=== PATIENT | female | born 1975 | race Hispanic/Latino ===

== ENCOUNTER → 2018-08-26 | Day surgery (SDC) | payer OTHER, MEDICARE ==
[2018-08-21 10:04] LABS: BASOPHILS # (AUTO) 0.1 (0.0-0.1); BASOPHILS % 0.5 % (0.0-1.0); EOSINOPHILS # (AUTO) 0.1 (0.0-0.4); EOSINOPHILS % 0.9 % (0.0-6.0); HEMATOCRIT 39.6 % (34.2-44.1); HEMOGLOBIN 12.4 g/dL (12.0-16.0); LYMPHOCYTES # (AUTO) 3.5 (1.0-3.2); MEAN CORPUSCULAR HEMOGLOBIN 27.1 pg (28-32); MEAN CORPUSCULAR HGB CONC 31.3 g/dL (31-35); MEAN CORPUSCULAR VOLUME 86.7 fL (81-99); MONOCYTES # (AUTO) 0.7 (0.2-0.8); MONOCYTES % 7.2 % (4.4-11.3); NEUTROPHILS # (AUTO) 5.8 (2.1-6.9); NEUTROPHILS % 56.3 % (38.7-80.0); PLATELET COUNT 323 x10e3/uL (140-360); RED BLOOD COUNT 4.57 x10e6/uL (3.6-5.1); RED CELL DISTRIBUTION WIDTH 14.4 % (11.7-14.4)
[2018-08-21 10:21] LABS: ANION GAP 12.7 mmol/L (8-16); BLOOD UREA NITROGEN 16 mg/dL (7-26); BUN/CREATININE RATIO 21 (6-25); CALCIUM 9.8 mg/dL (8.4-10.2); CARBON DIOXIDE 29 mmol/L (22-29); CHLORIDE 103 mmol/L (98-107); CREATININE, SERUM 0.75 mg/dL (0.57-1.11); EST GLOMERULAR FILTRATION RATE > 60 ML/MIN (60-); GLUCOSE 89 mg/dL (74-118); POTASSIUM 4.7 mmol/L (3.5-5.1); SODIUM 140 mmol/L (136-145)
[~2018-08-26] MED LIST: ATENOLOL25 MG PO; DEXAMETHASONE SOD PHOS INJ 4 MG/ML VIAL ONE; ENALAPRIL MALEA20 MG PO; ETODOLAC400 MG PO; FENTANYL CITRATE/PF 100MCG/2 ML INJ ONE; IBUPROFEN600 MG; LIDOCAINE HCL 2% LOCAL INJ 5 ML SDV VIAL INJ ONE; METFORMIN HCL500 MG PO; MIDAZOLAM HCL 2 MG/2 ML VIAL ONE; ONDANSETRON HCL INJ 2 MG/ML VIAL ONE; PANTOPRAZOLE SO40 MG PO; PRAVASTATIN SOD40 MG PO; PROPOFOL IV EMULSION 10 MG/ML 20 ML VIAL ONE; SEVOFLURANE INHAL SOLN 250 ML PEN BTL ONE; TYLENOL # 31 EA
--- OUTSIDE RECORDS SUMMARY | 2018-08-26 10:21 | XMS REPORT | Clinical Summary ---
Author Author [facility] Organization [facility] Address Unknown Phone Unavailable Care Team Providers Care Electric Crane Operator Name Role Phone Андрей Power MD PCP Allergies Active Allergy Reactions Severity Noted Date Comments Penicillins 02/04/2018 Current Medications Prescription Sig. Disp. Refills Start End Date Status Date enalapril (VASOTEC) 5 MG Take by mouth. Active tablet loratadine (CLARITIN) 10 Take by mouth. Active mg tablet metFORMIN (GLUCOPHAGE) Take by mouth. Active 500 mg tablet omeprazole (PriLOSEC) 20 Take by mouth. Active MG capsule simvastatin (ZOCOR) 40 MG Take by mouth. Active tablet Active Problems No known active problems Encounters Date Type Specialty Care Team Description 02/04/2018 Office Visit Otolaryngology Rhina Hernandez MD Dysfunction of both eustachian tubes (Primary Dx); Sensorineural hearing loss, bilateral after 08/25/2017 Social History Tobacco Use Types Packs/Day Years Used Date Never Smoker Smokeless Tobacco: Never Used Alcohol Use Drinks/Week oz/Week Comments No Sex Assigned at Date Recorded Not on file Last Filed Vital Signs Vital Sign Reading Time Taken Blood Pressure 155/103 02/04/2018 10:08 AM CDT Pulse 82 02/04/2018 10:08 AM CDT Temperature - - Respiratory Rate - - Oxygen Saturation - - Inhaled Oxygen - - Concentration Weight 75.3 kg (166 lb) 02/04/2018 10:08 AM CDT Height 152.4 cm (5') 02/04/2018 10:08 AM CDT Body Mass Index 32.42 02/04/2018 10:08 AM CDT Plan of Treatment Health Maintenance Due Date Last Done Comments CERVICAL CANCER SCREENING 1995 INFLUENZA VACCINE 05/27/2018 Results Not on fileafter 08/25/2017 Insurance Payer Benefit Subscriber ID Type Phone Address Plan / Group TEXANPLUS TEXANPLUS xxxxxxxxx HMO [facility] MEDICAID MEDICAID xxxxxxxxx Medicaid
--- OUTSIDE RECORDS SUMMARY | 2018-08-26 10:21 | XMS REPORT | Clinical Summary ---
Author Author [facility] Organization [facility] Address Unknown Phone Unavailable Care Team Providers Care Relief Driller Name Role Phone PCP Unavailable Allergies Active Allergy Reactions Severity Noted Date Comments Penicillins 08/04/2006 Current Medications Prescription Sig. Disp. Refills Start End Date Status Date ATENOLOL 25 MG TAB take 1 tablet (25mg) by Active oral route once daily METFORMIN 500 MG TAB take 1 tablet (500mg) by Active oral route 2 times per day with morning and evening meals SIMVASTATIN 40 MG TAB take 1 tablet (40mg) by Active oral route once daily in the evening LORATADINE 10 MG TAB take 1 tablet (10mg) by Active oral route once daily ENALAPRIL MALEATE 5 MG take 1 tablet (5mg) by Active TAB oral route once daily PRILOSEC 20 MG CAP take 1 capsule (20mg) by Active oral route once daily before a meal DOXYCYCLINE HYCLATE 100 take 1 capsule (100mg) by 14 0 02/06/20 Active MG CAPIndications: Acne oral route once daily 07 rosacea Active Problems Problem Noted Date Acne rosacea 02/05/2007 Hypercholesteremia 11/04/2006 DM II (diabetes mellitus, type II) 08/04/2006 Allergic rhinitis, cause unspecified 08/04/2006 HTN (hypertension) 08/04/2006 Encounters Date Type Specialty Care Team Description 06/05/2018 Emergency Emergency Medicine Bobby Mccall MD Swelling of lower extremity (Primary Dx) 09/08/2017 Emergency Emergency Medicine Pako Avitia MD Hypertension, unspecified - type (Primary Dx) 09/09/2017 after 06/17/2017 Immunizations Name Dates Previously Given Next Due Influenza Vaccine 08/18/2006 Family History Medical History Relation Name Comments Arthritis Maternal Aunt Heart Maternal Aunt Hypertension Maternal Aunt Psychiatry Maternal Aunt Cancer Paternal Aunt Relation Name Status Comments Maternal Aunt Mother Alive Paternal Aunt Social History Tobacco Use Types Packs/Day Years Used Date Never Smoker Alcohol Use Drinks/Week oz/Week Comments No Sex Assigned at Date Recorded Not on file Last Filed Vital Signs Vital Sign Reading Time Taken Blood Pressure 110/69 06/05/2018 3:12 AM CDT Pulse 55 06/05/2018 3:12 AM CDT Temperature 36.4 C (97.5 F) 06/05/2018 3:12 AM CDT Respiratory Rate 18 06/05/2018 3:12 AM CDT Oxygen Saturation 98% 06/05/2018 3:12 AM CDT Inhaled Oxygen - - Concentration Weight 75.4 kg (166 lb 3.2 oz) 06/04/2018 8:56 PM CDT Height - - Body Mass Index - - Plan of Treatment Health Maintenance Due Date Last Done Comments DM Foot Exam (Yearly) 1992 DM Retinal Exam (Yearly) 1992 Cervical Cancer Scrn (3 1995 Yrs) DM HGBA1C (Yearly) 10/28/2007 10/28/2006 Breast Cancer Scrn 2014 (Yearly) IMM Influenza Seasonal 07/27/2018Jul to December (>/=19 yrs) Procedures Procedure Name Priority Date/Time Associated Diagnosis Comments GLUCOSE POC Routine 06/04/2018 Results for this 8:57 PM CDT procedure are in the results section. BMP POC Routine 09/08/2017 Results for this 10:31 PM MARINE ENGINE MACHINIST procedure are in the results section. VBG POC Routine 09/08/2017 Results for this 10:26 PM MARINE ENGINE MACHINIST procedure are in the results section. TROPONIN I POC Routine 09/08/2017 Results for this 10:24 PM MARINE ENGINE MACHINIST procedure are in the results section. PHOSPHORUS STAT 09/08/2017 Results for this 10:12 PM MARINE ENGINE MACHINIST procedure are in the results section. MAGNESIUM STAT 09/08/2017 Results for this 10:12 PM MARINE ENGINE MACHINIST procedure are in the results section. 12 LEAD EKG Routine 09/08/2017 Results for this 6:25 PM MARINE ENGINE MACHINIST procedure are in the results section. GLUCOSE POC Routine 09/08/2017 Results for this 6:21 PM MARINE ENGINE MACHINIST procedure are in the results section. after 06/17/2017 Results * GLUCOSE POC (06/04/2018 8:57 PM) Only the most recent of 2 results within the time period is included. Glucose POC 84 74 - 106 mg/dL [facility] 1 Performing Organization Address [facility] Phone Number MISYS [facility] 1 * BMP POC (09/08/2017 10:31 PM) CO2 POC 26 21 - 32 mmol/L [facility] Chloride POC 102 98 - 107 mmol/L [place] [address] Potassium POC 4.4 3.50 - 5.10 mmol/L [place] [address] Sodium POC 138 136 - 145 mmol/L [place] [address] Glucose POC 116 (H) 74 - 106 mg/dL [place] [address] Urea Nitrogen POC 12 7 - 18 mg/dL [place] [address] Creatinine POC 0.7 0.6 - 1.3 mg/dL [place] [address] Calcium Ionized POC 1.21 1.15 - 1.29 mmol/L [place] [address] Hemoglobin POC 13.3 12.0 - 16.0 g/dL [place] [address] Hematocrit POC 39.0 37.0 - 47.0 % [place] [address] GFR, Estimated >60 mL/min/1.73 m2 [place] [address] GFR, Estim, Afr-Am >60 mL/min/1.73 m2 [facility] 1 Performing Organization Address [facility] Phone Number [employer] [facility] 1 * VBG POC (09/08/2017 10:26 PM) pH, Dea POC 7.43Comment: Physician 7.33 - 7.43 [facility] Notified pCO2, Dea POC 43.2 38.0 - 50.0 mm Hg [place] [address] pO2, Dea POC 33 (L) 50 - 75 mm Hg [facility] 1 Base Excess, Dea POC 4 mmol/L [place] [address] HCO3, Dea POC 28.7 (H) 22.0 - 26.0 mmol/L [place] [address] % Sat, Dea POC 65 60 - 85 % [place] [address] Lactic Acid, Dea POC 1.40 0.4 - 2.0 mmol/L [place] [address] TCO2, DEA POC 30 21 - 32 mmol/L [facility] 1 Performing Organization Address [facility] Phone Number [employer] [facility] 1 * TROPONIN I POC (09/08/2017 10:24 PM) Troponin POC 0.00 0.00 - 0.08 ng/mL [facility] 1 Performing Organization Address [facility] Phone Number [facility] 1 * PHOSPHORUS (09/08/2017 10:12 PM) Phosphorus 4.5 2.5 - 4.9 mg/dL [facility] 4 Specimen Blood Performing Organization Address [facility] Phone Number ALIS [facility] 4 * MAGNESIUM (09/08/2017 10:12 PM) Magnesium 2.4 1.8 - 2.4 mg/dL [facility] 4 Specimen Blood Performing Organization Address [facility] Phone Number [facility] 4 * 12 LEAD EKG (09/08/2017 6:25 PM) 12 LEAD EKG FOR CH[facility] Test Date:2017-09-08 Pat Name: ANGELICA MIDDLETON Department: Room: Gender: F Retail Buyer: [id number] :[id number] [phone] Requested By: Order Number: Oral saleem MD: GRACE GUERRERO Measurements Intervals [place] Rate: 67 P:56 CO: 128 QRS: 36 QRSD: 83 T:37 QT: 383 QTc:404 Interpretive Statements SINUS RHYTHM NONSPECIFIC T WAVE ABNORMALITY BORDERLINE ECG Electronically Signed On 09-08-17 20:32:19 MARINE ENGINE MACHINIST by GRACE GUERRERO Performing Organization Address [facility] Phone Number [facility] after 06/17/2017
--- OUTSIDE RECORDS SUMMARY | 2018-08-26 10:21 | XMS REPORT | Clinical Summary ---
Author Author [facility] Organization [facility] Address Unknown Phone Unavailable Care Team Providers Care Food Truck Caterer Name Role Phone PCP Unavailable Allergies Active [...] unspecified - type (Primary Dx) 09/09/2017 after 06/11/2017 Immunizations Name Dates Previously Given Next Due [...] Influenza Seasonal 07/27/2018Jul to December (>/=19 yrs) Results * GLUCOSE POC (06/04/2018 8:57 PM) Only the most recent of 2 results within the time period is included. Component Value Ref Range Glucose POC 84 74 - 106 mg/dL Specimen Performing Laboratory MISYS * BMP POC (09/08/2017 10:31 PM) Component Value Ref Range CO2 POC 26 21 - 32 mmol/L Chloride POC 102 98 - 107 mmol/L Potassium POC 4.4 3.50 - 5.10 mmol/L Sodium POC 138 136 - 145 mmol/L Glucose POC 116 (H) 74 - 106 mg/dL Urea Nitrogen POC 12 7 - 18 mg/dL Creatinine POC 0.7 0.6 - 1.3 mg/dL Calcium Ionized POC 1.21 1.15 - 1.29 mmol/L Hemoglobin POC 13.3 12.0 - 16.0 g/dL Hematocrit POC 39.0 37.0 - 47.0 % GFR, Estimated >60 mL/min/1.73 m2 GFR, Estim, Afr-Am >60 mL/min/1.73 m2 Specimen Performing Laboratory MISYS * VBG POC (09/08/2017 10:26 PM) Component Value Ref Range pH, Dea POC 7.43Comment: Physician Notified 7.33 - 7.43 pCO2, Dea POC 43.2 38.0 - 50.0 mm Hg pO2, Dea POC 33 (L) 50 - 75 mm Hg Base Excess, Dea POC 4 mmol/L HCO3, Dea POC 28.7 (H) 22.0 - 26.0 mmol/L % Sat, Dea POC 65 60 - 85 % Lactic Acid, Dea POC 1.40 0.4 - 2.0 mmol/L TCO2, DEA POC 30 21 - 32 mmol/L Specimen Performing Laboratory MISYS * TROPONIN I POC (09/08/2017 10:24 PM) Component Value Ref Range Troponin POC 0.00 0.00 - 0.08 ng/mL Specimen Performing Laboratory [facility] * PHOSPHORUS (09/08/2017 10:12 PM) Component Value Ref Range Phosphorus 4.5 2.5 - 4.9 mg/dL Specimen Performing Laboratory Blood MISYS * MAGNESIUM (09/08/2017 10:12 PM) Component Value Ref Range Magnesium 2.4 1.8 - 2.4 mg/dL Specimen Performing Laboratory Blood MISYS * 12 LEAD EKG (09/08/2017 6:25 PM) Component Value Ref Range 12 LEAD EKG FOR [facility]P [facility] Test Date:2017-09-08 Pat Name: ANGELICA MIDDLETON Department: : Gender: FT echnician: [id number] :1975 Requested By: Order Number: Reading MD: GRACE GUERRERO Measurements Intervals [place] Rate: 67 P:56 [place]: 128QRS :36 QRSD: 83 T:37 QT: 383 QTc:404 Interpretive Statements SINUS RHYTHM NONSPECIFIC T WAVE ABNORMALITY BORDERLINE ECG Electronically Signed On 09-08-17 20:32:19 SPEEDER FRAME TENDER by GRACE GUERRERO Specimen Performing Laboratory SMS after 06/11/2017
--- OUTSIDE RECORDS SUMMARY | 2018-08-26 10:21 | XMS REPORT | Continuity of Care Document ---
Author Author [facility] Interface Address Unknown Phone Unavailable Problems Problem Status Onset Date Classification Date Reported Comments Source 246.9 DISORDER OF THYROID Active 11/30/2013 [facility] Acne rosacea Active 02/05/2007 Problem 06/18/2018 [facility] Hypercholesteremia Active 11/04/2006 Problem 06/18/2018 [facility] DM II Active 08/04/2006 Problem 06/18/2018 [facility] Allergic rhinitis, cause unspecified Active 08/04/2006 Problem 06/18/2018 [facility] HTN Active 08/04/2006 Problem 06/18/2018 [facility] Medications Medication Details Route Status Patient Instructions Ordering Provider Order Date Source Doxycycline Hyclate 100 Mg Capsule take 1 capsule (100mg) by oral route once daily Oral Active 02/05/2007 [facility] Atenolol 25 Mg Tablet take 1 tablet (25mg) by oral route once daily Oral Active [facility] Metformin 500 Mg Tablet take 1 tablet (500mg) by oral route 2 times per day with morning and evening meals Oral Active [facility] Simvastatin 40 Mg Tablet take 1 tablet (40mg) by oral route once daily in the evening Oral Active [facility] Loratadine 10 Mg Tablet take 1 tablet (10mg) by oral route once daily Oral Active [facility] Enalapril Maleate 5 Mg Tablet take 1 tablet (5mg) by oral route once daily Oral Active [facility] Prilosec 20 Mg Capsule,Delayed Release take 1 capsule (20mg) by oral route once daily before a meal Oral Active [facility] Allergies, Adverse Reactions, Alerts Substance Category Reaction Severity Reaction type Status Date Reported Comments Source Penicillins Propensity to adverse reactions to drug Active 08/04/2006 [facility] Immunizations Immunization Date Given Site Status Last Updated Comments Source Influenza Vaccine 08/18/2006 completed [facility] Results Order Name Results Value Reference Range Date Interpretation Comments Source GLUCOSE POC Glucose POC 84 mg/dL 74 - 106 06/05/2018 [facility] GLUCOSE POC Glucose POC 84 mg/dL 74 - 106 06/04/2018 [facility] MAGNESIUM Magnesium 2.4 mg/dL 1.8 - 2.4 09/09/2017 [facility] PHOSPHORUS Phosphorus 4.5 mg/dL 2.5 - 4.9 09/09/2017 [facility] TROPONIN I POC Troponin POC 0.00 ng/mL 0 - 0.08 09/09/2017 [facility] POC CO2 POC 26 mmol/L 21 - 32 09/09/2017 [facility] POC Chloride POC 102 mmol/L 98 - 107 09/09/2017 [facility] POC Potassium POC 4.4 mmol/L 3.5 - 5.1 09/09/2017 [facility] POC Sodium POC 138 mmol/L 136 - 145 09/09/2017 [facility] POC Glucose POC 116 mg/dL 74 - 106 09/09/2017 [facility] POC Urea Nitrogen POC 12 mg/dL 7 - 18 09/09/2017 [facility] POC Creatinine POC 0.7 mg/dL 0.6 - 1.3 09/09/2017 [facility] POC Calcium Ionized POC 1.21 mmol/L 1.15 - 1.29 09/09/2017 [facility] POC Hemoglobin POC 13.3 g/dL 12 - 16 09/09/2017 [facility] POC Hematocrit POC 39.0 % 37 - 47 09/09/2017 [facility] POC GFR, Estimated >60 mL/min/1.73 m2 09/09/2017 [facility] POC GFR, Estim, Afr-Am >60 mL/min/1.73 m2 09/09/2017 [facility] POC Lab Interpretation Abnormal 09/09/2017 [facility] POC pH, Dea POC 7.43 7.33 - 7.43 09/09/[address] [facility] POC pCO2, Dea POC 43.2 38.0 - 50.0 [facility] pO[facility], Dea POC 33 50 - 75 09/09/2017 [facility] POC Base Excess, Dea POC 4 mmol/L 09/09/[facility] HCO3, Dea POC 28.7 mmol/L 22 - 26 [facility]/09/[facility] % Sat, Dea POC 65 % 60 - 85 09/09/[facility] Lactic Acid, Dea POC 1.40 mmol/L 0.4 - 2 09/09/2017 [facility] TCO2, DEA POC 30 mmol/L 21 - 32 09/09/2017 [facility] Lab Interpretation Abnormal 09/09/2017 [facility] 12 LEAD EKG 12 LEAD EKG FOR [facility]P [facility] Test Date:2017-09-08 Pat Name: ANGELICA MIDDLETON Department: : Gender: FTechnician: [id number] :1975 Requested By: Order Number:Reading MD: GRACE GUERRERO Measurements IntervalsAxis Rate: 67 P:56 [place]: 128QRS:36 QRSD: 83 T:37 QT: 383 QTc:404 Interpretive Statements SINUS RHYTHM NONSPECIFIC T WAVE ABNORMALITY BORDERLINE ECG Electronically Signed On 09-08-17 20:32:19 GRAIN OPERATOR by GRACE GUERRERO 09/09/2017 [facility] POC CO2 POC 26 mmol/L 21 - 32 09/08/2017 [facility] POC Chloride POC 102 mmol/L 98 - 107 09/08/2017 [facility] POC Potassium POC 4.4 mmol/L 3.5 - 5.1 09/08/2017 [facility] POC Sodium POC 138 mmol/L 136 - 145 09/08/2017 [facility] POC Glucose POC 116 mg/dL 74 - 106 09/08/2017 [facility] POC Urea Nitrogen POC 12 mg/dL 7 - 18 09/08/2017 [facility] POC Creatinine POC 0.7 mg/dL 0.6 - 1.3 09/08/2017 [facility] POC Calcium Ionized POC 1.21 mmol/L 1.15 - 1.29 09/08/2017 [facility] POC Hemoglobin POC 13.3 g/dL 12 - 16 09/08/2017 [facility] POC Hematocrit POC 39.0 % 37 - 47 09/08/2017 [facility] POC GFR, Estimated >60 mL/min/1.73 m2 09/08/2017 [facility] POC GFR, Estim, Afr-Am >60 mL/min/1.73 m2 09/08/2017 [facility] POC Lab Interpretation Abnormal 09/08/2017 [facility] POC pH, Dea POC 7.43 7.33 - 7.43 09/08/[address] [facility] POC pCO2, Dea POC 43.2 mm Hg 38.0 - 50.0 09/08/2017 [facility] POC pO2, Dea POC 33 mm Hg 50 - 75 09/08/2017 [facility] POC Base Excess, Dea POC 4 mmol/L 09/08/2017 [facility]BG POC HCO3, Dea POC 28.7 mmol/L 22 - 26 09/08/2017 [facility]BG POC % Sat, Dea POC 65 % 60 - 85 09/08/2017 [facility] POC Lactic Acid, Dea POC 1.40 mmol/L 0.4 - 2 09/08/2017 [facility]BG POC TCO2, DEA POC 30 mmol/L 21 - 32 09/08/2017 [facility] Lab Interpretation Abnormal 09/08/2017 [facility] TROPONIN I POC Troponin POC 0.00 ng/mL 0 - 0.08 09/08/2017 [facility] MAGNESIUM Magnesium 2.4 mg/dL 1.8 - 2.4 09/08/2017 [facility] PHOSPHORUS Phosphorus 4.5 mg/dL 2.5 - 4.9 09/08/2017 [facility] 12 LEAD EKG [facility] Pat Name: ANGELICA MIDDLETON Department: : Gender: FTechnician: [id number] :1975 Requested By: Order Number:Reading MD: GRACE GUERRERO Measurements IntervalsAxis Rate: 67 P:56 NH: 128QRS:36 QRSD: 83 T:37 QT: 383 QTc:404 Interpretive Statements SINUS RHYTHM NONSPECIFIC T WAVE ABNORMALITY BORDERLINE ECG Electronically Signed On 09-08-17 20:32:19 GRAIN OPERATOR by GRACE GUERRERO 09/08/2017 [facility] Thyroid biopsy guided by US Thyroid biopsy guided by US ADDENDUM: The biopsy results were negative for malignant cells. A 6 month follow-up thyroid ultrasound is recommended. These findings are communicated to Laltiha in Dr. Pompa's office on 12/24/2013 at 3:16 p.m. SL: 14 PROCEDURE: Thyroid biopsy guided by US CLINICAL INDICATION: thyroid nodules COMPARISON: 11/11/2013 TECHNIQUE AND FINDINGS: CONSENT: The patient is ALLERGIC to penicillin. The patient denied intake of any blood thinners, including Plavix, aspirin and warfarin. The risks and benefits of the procedure, the risk of doing nothing, as well as alternative therapies were explained to the patient. The patient was then allowed to ask questions. The patient stated she understood and agreed to proceed. It is my judgment the patient does understand the treatment plan. The patient was placed supine on the stretcher with the neck in hyperextended position. Suitable access to the solid right thyroid nodule was localized. The area was prepared draped in the usual sterile fashion. Local anesthesia was obtained with subcutaneous lidocaine injection. A fine needle aspiration was performed under ultrasound guidance with a 25 gauge needle x 4. No immediate complication was observed. Postbiopsy images demonstrate no bleeding. The patient was instructed concerning postprocedural care and expectations. The patient was instructed to notify this facility, contact the referring physician, or report to the nearest emergency department should any questions or concerns arise. Complications: None. IMPRESSION: Successful ultrasound guided thyroid nodule fine needle aspiration. SL: 13 12/10/2013 - - Read by: Jose Pride Dictated Date/time: 12/24/13 15:13 Electronically Signed by: Jose Pride MD 12/24/13 15:17 FINAL REPORT - - Read by: Jose Pride Dictated Date/time: 12/10/13 13:39 Electronically Signed by: Jose Pride MD 12/10/13 13:45 FINAL REPORT [facility] Vital Signs Vital Sign Value Date Comments Source Systolic (mm Hg) 110 06/05/2018 [facility] Diastolic (mm Hg) 69 06/05/2018 [facility] Heart Rate 55 06/05/2018 [facility] Temperature Oral (F) 36.39 [place] 06/05/2018 [facility] Respitory Rate 18 06/05/2018 [facility] Weight 75.388 06/05/2018 [facility] Encounters Location Location Details Encounter Type Encounter Number Reason For Visit Attending Provider ADM Date DC Date Status Source [facility] Outpatient [id number] 246.9 DISORDER OF THYROID CHRIS AZALEA 12/10/2013 Active [facility] ([id number] Emergency [id number] Hypertension, unspecified type Pako Avitia MD 09/09/2017 09/09/2017 [facility] ([id number]) [facility] Emergency [id number] Swelling of lower extremity Bobby Mccall MD 06/05/2018 06/05/2018 [facility] Procedures Procedure Code Date Perfomer Comments Source GLUCOSE POC 60215 06/05/2018 Unknown [facility] BMP POC 92023 09/09/2017 Unknown [facility] VBG POC 33943 09/09/2017 Unknown [facility] TROPONIN I POC 77155 09/09/2017 [facility] MAGNESIUM [id number] 09/09/[address] [facility] PHOSPHORUS [id number] 09/09/[address] [facility] 12 LEAD EKG [id number] 09/09/2017 [facility] GLUCOSE POC 18950 09/09/2017 [facility]
--- OUTSIDE RECORDS SUMMARY | 2018-08-26 10:21 | XMS REPORT | Clinical Summary ---
Author Author [facility] Organization [facility] Address Unknown Phone Unavailable Care Team Providers Care Geophysical Prospecting Surveyor Name Role Phone PCP Unavailable Allergies Active [...] unspecified - type (Primary Dx) 09/09/2017 after 08/25/2017 Immunizations Name Dates Previously Given Next Due [...] Routine 09/08/2017 Results for this 10:31 PM MATTRESS MAKER procedure are in the results section. VBG POC Routine 09/08/2017 Results for this 10:26 PM MATTRESS MAKER procedure are in the results section. TROPONIN I POC Routine 09/08/2017 Results for this 10:24 PM MATTRESS MAKER procedure are in the results section. PHOSPHORUS STAT 09/08/2017 Results for this 10:12 PM MATTRESS MAKER procedure are in the results section. MAGNESIUM STAT 09/08/2017 Results for this 10:12 PM MATTRESS MAKER procedure are in the results section. 12 LEAD EKG Routine 09/08/2017 Results for this 6:25 PM MATTRESS MAKER procedure are in the results section. GLUCOSE POC Routine 09/08/2017 Results for this 6:21 PM MATTRESS MAKER procedure are in the results section. after 08/25/2017 Results * GLUCOSE POC (06/04/2018 8:57 PM) Only the most recent of 2 results within the time period is included. Glucose POC 84 74 - 106 mg/dL [facility] 1 Performing Organization Address [facility] MISYS [facility] 1 * BMP POC (09/08/2017 10:31 PM) CO2 POC 26 21 - 32 mmol/L [facility] Chloride POC 102 98 - 107 mmol/L [place] [address] Potassium POC 4.4 3.50 - 5.10 mmol/L [place] [address] Sodium POC 138 136 - 145 mmol/L [place] [address] Glucose POC 116 (H) 74 - 106 mg/dL [place] [address] Urea Nitrogen POC 12 7 - 18 mg/dL [place] [address] Creatinine POC 0.7 0.6 - 1.3 mg/dL [place] [address] Calcium Ionized POC 1.21 1.15 - 1.29 mmol/L [place] [address] Hemoglobin POC 13.3 12.0 - 16.0 g/dL [place] [address] Hematocrit POC 39.0 37.0 - 47.0 % [place] [address] GFR, Estimated >60 mL/min/1.73 m2 [place] [address] GFR, Estim, Afr-Am >60 mL/min/1.73 m2 [facility] 1 Performing Organization Address [facility] [place] Number A.P Avanashiappa SilkYS [facility] 1 * VBG POC (09/08/2017 10:26 PM) pH, Dea POC 7.43Comment: Physician 7.33 - 7.43 [facility] Notified pCO2, Dea POC 43.2 38.0 - 50.0 mm Hg [place] [address] pO2, Dea POC 33 (L) 50 - 75 mm Hg [facility] Base Excess, Dea POC 4 mmol/L [place] [address] HCO3, Dea POC 28.7 (H) 22.0 - 26.0 mmol/L [place] [address] % Sat, Dea POC 65 60 - 85 % [place] [address] Lactic Acid, Dea POC 1.40 0.4 - 2.0 mmol/L [place] [address] TCO2, DEA POC 30 21 - 32 mmol/L [facility] 1 Performing Organization Address [facility] Phone Number A.P Avanashiappa SilkYS [facility] 1 * TROPONIN I POC (09/08/2017 10:24 PM) Troponin POC 0.00 0.00 - 0.08 ng/mL [facility] 1 Performing Organization Address [facility] [place] Phone [facility] * PHOSPHORUS (09/08/2017 10:12 PM) Phosphorus 4.5 2.5 - 4.9 mg/dL [facility] 4 Specimen Blood Performing Organization Address [facility] Phone Number ALIS [facility] 4 * MAGNESIUM (09/08/2017 10:12 PM) Magnesium 2.4 1.8 - 2.4 mg/dL [facility] 4 Specimen Blood Performing Organization Address [facility] [place] Phone Number [facility] * 12 LEAD EKG (09/08/2017 6:25 PM) 12 LEAD EKG FOR CHP [facility] Test Date:2017-09-08 Pat Name: ANGELICA MIDDLETON Department: Room: Gender: F Wind Turbine Mechanic: [id number] :1975-1 0-19 Requested By: Order Number: Oral saleem MD: GRACE GUERRERO Measurements Intervals [place] Rate: 67 P:56 DE: 128 QRS: 36 QRSD: 83 T:37 QT: 383 QTc:404 Interpretive Statements SINUS RHYTHM NONSPECIFIC T WAVE ABNORMALITY BORDERLINE ECG Electronically Signed On 09-08-17 20:32:19 MATTRESS MAKER by GRACE GUERRERO Performing Organization Address [facility] [place] Phone Number [facility] after 08/25/2017
--- OUTSIDE RECORDS SUMMARY | 2018-08-26 10:21 | XMS REPORT ---
Author Author [facility] Address Unknown Phone Unavailable Care Team Providers Care Open Shank Coverer Name Role Phone Unavailable Unavailable Problems This patient has no known problems. Allergies, Adverse Reactions, Alerts This patient has no known allergies or adverse reactions. Medications This patient has no known medications. Encounters Start Date/Time End Date/Time Encounter Type Admission Type Attending Clinicians Care Facility Care Department Encounter ID 2018-06-05 01:33:10 2018-06-05 01:33:10 Emergency [facility] [id number] 2017-09-08 21:55:42 2017-09-08 21:55:42 Emergency [facility] [id number]
[2018-08-26 15:55] VITALS: BP 128/74
--- NOTE | 2018-08-26 16:45 | Operative Report ---
DATE OF PROCEDURE: PREOPERATIVE DIAGNOSIS: Abnormal uterine bleeding. POSTOPERATIVE DIAGNOSIS: Abnormal uterine bleeding. PROCEDURES PERFORMED 1. Hysteroscopy. 2. Dilatation and curettage. 3. Polypectomy. COMPLICATIONS: None. ESTIMATED BLOOD LOSS: Minimal. DETAILS OF PROCEDURE: The patient was taken to the OR, and general anesthesia was placed. She was prepped and draped in the normal sterile fashion. She was placed in the dorsal lithotomy position. Examination under anesthesia revealed normal size uterus, anteverted and mobile. No adnexal masses. Cavity length measured about 10 cm using uterine sound. Right angled speculum was placed inside the vagina and cervix was grasped with an Allis clamp. The cervix was dilated to Hegar 8. Hysteroscope was introduced, and showed 2 cm polyp at the fundus using the TruClear device. Shaver was introduced under saline distension and polyp was removed. Sharp curettings were obtained and sent to pathology. Patient tolerated the procedure well. The lap, instrument and needle count was correct x2 at the end of the procedure. Job#: [id number] VAS
== END | disposition home or self-care (01) ==
LOC: OR 10:17
PROVIDERS: ATTEND Obstetrics & Gynecology
DX: N84.0 Polyp of corpus uteri (principal); D64.9 Anemia, unspecified; E11.9 Type 2 diabetes mellitus without complications; R00.1 Bradycardia, unspecified; I10 Essential (primary) hypertension; Z88.0 Allergy status to penicillin; Z01.810 Encounter for preprocedural cardiovascular examination; Z01.812 Encounter for preprocedural laboratory examination; Z79.84 Long term (current) use of oral hypoglycemic drugs
CPT/HCPCS: 36415; 58558; 80048; 81025; 84702; 85025; 88305; 88342; 93005; J1100; J2001; J2250; J2405; J2704

== ENCOUNTER → 2018-12-29 | Day surgery (SDC) | payer MEDICARE ==
[2018-12-22 11:08] LABS: BASOPHILS # (AUTO) 0.1 (0.0-0.1); BASOPHILS % 0.6 % (0.0-1.0); EOSINOPHILS # (AUTO) 0.1 (0.0-0.4); EOSINOPHILS % 0.4 % (0.0-6.0); HEMATOCRIT 41.9 % (34.2-44.1); HEMOGLOBIN 13.8 g/dL (12.0-16.0); LYMPHOCYTES # (AUTO) 3.6 (1.0-3.2); LYMPHOCYTES % 31.1 % (18.0-39.1); MEAN CORPUSCULAR HEMOGLOBIN 28.2 pg (28-32); MEAN CORPUSCULAR HGB CONC 32.9 g/dL (31-35); MEAN CORPUSCULAR VOLUME 85.7 fL (81-99); MONOCYTES # (AUTO) 0.7 (0.2-0.8); MONOCYTES % 6.3 % (4.4-11.3); NEUTROPHILS % 61.2 % (38.7-80.0); PLATELET COUNT 319 x10e3/uL (140-360); RED BLOOD COUNT 4.89 x10e6/uL (3.6-5.1); RED CELL DISTRIBUTION WIDTH 15.4 % (11.7-14.4)
[~2018-12-29] MED LIST changes: +ATROPINE SULFATE 1 MG/ML VIAL ONE; +BUPIVACAINE 0.25%/EPI 30ML SDV INJ ONE; +CLINDAMYCIN PHOS 300MG/2ML VIAL ONE; +ESTROGENS CONJUGATED VAGINAL CR 45 GM TUBE PV ONE; +IRON159 MG; +KETOROLAC TROMETHAMINE 30 MG/ML VIAL ONE; +METHYLENE BLUE 1% INJ 10 ML VIAL INJ ONE; +NEOSTIGMINE 5 MG/5ML SYR ONE; -ONDANSETRON HCL INJ 2 MG/ML VIAL ONE; +ONDANSETRON HCL INJ 2MG/ML 2ML 2 MG/ML VIAL ONE
--- OUTSIDE RECORDS SUMMARY | 2018-12-29 08:04 | XMS REPORT | Continuity of Care Document ---
Author Author [facility] Address Unknown Phone Unavailable Problems Problem Status Onset Date Classification Date Reported Comments Source 246.9 DISORDER OF THYROID Active 11/30/2013 [facility] Acne rosacea Active 02/05/2007 Problem 06/18/2018 [facility] Hypercholesteremia Active 11/04/2006 Problem 06/18/2018 [facility] DM II Active 08/04/2006 Problem 06/18/2018 [facility] Allergic rhinitis, cause unspecified Active 08/04/2006 Problem 06/18/2018 [facility] HTN Active 08/04/2006 Problem 06/18/2018 [facility] Medications Medication Details Route Status Patient Instructions Ordering Provider Order Date Source Doxycycline Hyclate 100 Mg Capsule take 1 capsule (100mg) by oral route once daily Oral Active 02/05/2007 [facility] Atenolol 25 Mg Tablet take 1 tablet (25mg) by oral route once daily Oral Active [facility] Metformin 500 Mg Tablet take 1 tablet (500mg) by oral route 2 times per day with morning and evening meals Oral Active [facility] Simvastatin 40 Mg Tablet take 1 tablet (40mg) by oral route once daily in the evening Oral Active [facility] Loratadine 10 Mg Tablet take 1 tablet (10mg) by oral route once daily Oral Active [facility] Enalapril Maleate 5 Mg Tablet take 1 tablet (5mg) by oral route once daily Oral Active [facility] Prilosec 20 Mg Capsule,Delayed Release take 1 capsule (20mg) by oral route once daily before a meal Oral Active [facility] Allergies, Adverse Reactions, Alerts Substance Category Reaction Severity Reaction type Status Date Reported Comments Source Penicillins Propensity to adverse reactions to drug Active 08/04/2006 [facility] Immunizations Immunization Date Given Site Status Last Updated Comments Source Influenza Vaccine 08/18/2006 completed [facility] Results Order Name Results Value Reference Range Date Interpretation Comments Source GLUCOSE POC Glucose POC 84 mg/dL 74 - 106 06/05/2018 [facility] GLUCOSE POC Glucose POC 84 mg/dL 74 - 106 06/04/2018 [facility] MAGNESIUM Magnesium 2.4 mg/dL 1.8 - 2.4 09/09/2017 [facility] PHOSPHORUS Phosphorus 4.5 mg/dL 2.5 - 4.9 09/09/2017 [facility] TROPONIN I POC Troponin POC 0.00 ng/mL 0 - 0.08 09/09/2017 [facility] POC CO2 POC 26 mmol/L 21 - 32 09/09/2017 [facility] POC Chloride POC 102 mmol/L 98 - 107 09/09/2017 [facility] POC Potassium POC 4.4 mmol/L 3.5 - 5.1 09/09/2017 [facility] POC Sodium POC 138 mmol/L 136 - 145 09/09/2017 [facility] POC Glucose POC 116 mg/dL 74 - 106 09/09/2017 [facility] POC Urea Nitrogen POC 12 mg/dL 7 - 18 09/09/2017 [facility] POC Creatinine POC 0.7 mg/dL 0.6 - 1.3 09/09/2017 [facility] POC Calcium Ionized POC 1.21 mmol/L 1.15 - 1.29 09/09/2017 [facility] POC Hemoglobin POC 13.3 g/dL 12 - 16 09/09/2017 [facility] POC Hematocrit POC 39.0 % 37 - 47 09/09/2017 [facility] POC GFR, Estimated >60 mL/min/1.73 m2 09/09/2017 [facility] POC GFR, Estim, Afr-Am >60 mL/min/1.73 m2 09/09/2017 [facility] POC Lab Interpretation Abnormal 09/09/2017 [facility] POC pH, Dea POC 7.43 7.33 - 7.43 09/09/2017 Physician Notified [facility] POC pCO2, Dea POC 43.2 38.0 - 50.0 09/09/2017 [facility] pO2, Dea POC 33 50 - 75 09/09/2017 [facility] POC Base Excess, Dea POC 4 mmol/L 09/09/2017 [facility] HCO3, Dea POC 28.7 mmol/L 22 - 26 09/09/2017 [facility] P[facility] % Sat, Dea POC 65 % 60 - 85 09/09/2017 [facility] P[facility] Lactic Acid, Dea POC 1.40 mmol/L 0.4 - 2 09/09/2017 [facility] P[facility] TCO2, DEA POC 30 mmol/L 21 - 32 09/09/2017 [facility] Lab Interpretation Abnormal 09/09/2017 [facility] 12 LEAD EKG 12 LEAD EKG FOR [facility]P [facility] Test Date:2017-09-08 Pat Name: ANGELICA MIDDLETON Department: : Gender: FTechnician: [id number] :1975 Requested By: Order Number:Reading MD: GRACE GUERRERO Measurements IntervalsAxis Rate: 67 P:56 DE: 128QRS:36 QRSD: 83 T:37 QT: 383 QTc:404 Interpretive Statements SINUS RHYTHM NONSPECIFIC T WAVE ABNORMALITY BORDERLINE ECG Electronically Signed On 09-08-17 20:32:19 ONLINE CONTENT DEVELOPER by GRACE GUERRERO 09/09/2017 [facility] POC CO2 POC 26 mmol/L 21 - 32 09/08/2017 [facility] POC Chloride POC 102 mmol/L 98 - 107 09/08/2017 [facility] POC Potassium POC 4.4 mmol/L 3.5 - 5.1 09/08/2017 [facility] POC Sodium POC 138 mmol/L 136 - 145 09/08/2017 [facility] POC Glucose POC 116 mg/dL 74 - 106 09/08/2017 High [facility] POC Urea Nitrogen POC 12 mg/dL 7 - 18 09/08/2017 [facility] POC Creatinine POC 0.7 mg/dL 0.6 - 1.3 09/08/2017 [facility] POC Calcium Ionized POC 1.21 mmol/L 1.15 - 1.29 09/08/2017 [facility] POC Hemoglobin POC 13.3 g/dL 12 - 16 09/08/2017 [facility] POC Hematocrit POC 39.0 % 37 - 47 09/08/2017 [facility] POC GFR, Estimated >60 mL/min/1.73 m2 09/08/2017 [facility] POC GFR, Estim, Afr-Am >60 mL/min/1.73 m2 09/08/2017 [facility] POC Lab Interpretation Abnormal 09/08/2017 [facility] POC pH, Dea POC 7.43 7.33 - 7.43 09/08/2017 Physician Notified [facility] POC pCO2, Dea POC 43.2 mm Hg 38.0 - 50.0 09/08/2017 [facility] POC pO2, Dea POC 33 mm Hg 50 - 75 09/08/2017 Low [facility] POC Base Excess, Dea POC 4 mmol/L 09/08/2017 [facility] VBG POC HCO3, Dea POC 28.7 mmol/L 22 - 26 09/08/2017 High [facility] VBG POC % Sat, Dea POC 65 % 60 - 85 09/08/2017 [facility]BG POC Lactic Acid, Dea POC 1.40 mmol/L 0.4 - 2 09/08/2017 [facility]BG POC TCO2, DEA POC 30 mmol/L 21 - 32 09/08/2017 [facility] Lab Interpretation Abnormal 09/08/2017 [facility] TROPONIN I POC Troponin POC 0.00 ng/mL 0 - 0.08 09/08/2017 [facility] MAGNESIUM Magnesium 2.4 mg/dL 1.8 - 2.4 09/08/2017 [facility] PHOSPHORUS Phosphorus 4.5 mg/dL 2.5 - 4.9 09/08/2017 [facility] 12 LEAD EKG 12 [facility]:2017-09-08 Pat Name: ANGELICA MIDDLETON Department: : Gender: FTechnician: [id number] :1975 Requested By: Order Number:Reading MD: GRACE GUERRERO Measurements IntervalsAxis Rate: 67 P:56 DE: 128QRS:36 QRSD: 83 T:37 QT: 383 QTc:404 Interpretive Statements SINUS RHYTHM NONSPECIFIC T WAVE ABNORMALITY BORDERLINE ECG Electronically Signed On 09-08-17 20:32:19 ONLINE CONTENT DEVELOPER by GRACE GUERRERO 09/08/2017 [facility] Thyroid biopsy guided by US Thyroid biopsy guided by US ADDENDUM: The biopsy results were negative for malignant cells. A 6 month follow-up thyroid ultrasound is recommended. These findings are communicated to Lalitha in Dr. Pompa's office on 12/24/2013 at [...] Jose Pride MD 12/10/13 13:45 FINAL REPORT [facility] Vital Signs Vital Sign Value Date Comments Source Systolic (mm Hg) 110 06/05/2018 [facility] Diastolic (mm Hg) 69 06/05/2018 [facility] Heart Rate 55 06/05/2018 [facility] Temperature Oral (F) 36.39 Ysabel 06/05/2018 [facility] Respitory Rate 18 06/05/2018 [facility] Weight 75.388 06/05/2018 [facility] Encounters Location Location Details Encounter Type Encounter Number Reason For Visit Attending Provider ADM Date DC Date Status Source [facility] Outpatient [id number] 246.9 DISORDER OF THYROID CHRIS AZALEA 12/10/2013 Active [facility] ([id number]) [facility] Emergency [id number] Hypertension, unspecified type Pako Avitia MD 09/09/2017 09/09/2017 [facility] ([id number]) [facility] Emergency [id number] Swelling of lower extremity Bobby Mccall MD 06/05/2018 06/05/2018 [facility] Procedures Procedure Code Date Perfomer Comments Source GLUCOSE POC 79492 06/05/2018 Unknown [facility] BMP POC 97887 09/09/2017 Unknown [facility] VBG POC 93926 09/09/2017 Unknown [facility] TROPONIN I POC 39952 09/09/2017 [facility] MAGNESIUM [id number] 09/09/2017 [facility] PHOSPHORUS [id number] 09/09/2017 [facility] 12 LEAD EKG [id number] 09/09/2017 [facility] GLUCOSE POC 44139 09/09/2017 [facility]
--- OUTSIDE RECORDS SUMMARY | 2018-12-29 08:04 | XMS REPORT | Clinical Summary ---
Author Author [facility] Organization [facility] Address Unknown Phone Unavailable Care Team Providers Care Raise Miner Name Role Phone Андрей Power MD PCP Allergies Comments Active Allergy Reactions Severity Noted Date Penicillins 02/04/2018 Medications End Date Status Medication Sig Dispensed Refills Start Date Active enalapril (VASOTEC) 5 MG Take by 0 tablet mouth. Active loratadine (CLARITIN) 10 Take by 0 mg tablet mouth. Active metFORMIN (GLUCOPHAGE) Take by 0 500 mg tablet mouth. Active omeprazole (PriLOSEC) 20 Take by 0 MG capsule mouth. Active simvastatin (ZOCOR) 40 MG Take by 0 tablet mouth. Active Problems No known active problems Encounters Care Team Description Date Type Specialty Rhina Hernandez MD Dysfunction of both eustachian tubes (Primary Dx); Sensorineural hearing loss, bilateral 02/04/2018 Office Visit Otolaryngology after 12/28/2017 Social History Date Tobacco Use Types Packs/Day Years Used Never Smoker Smokeless Tobacco: Never Used Alcohol Use Drinks/Week oz/Week Comments No Sex Assigned at Date Recorded Not on file Industry Job Start Date Occupation Not on file Not on file Not on file Travel End Travel History Travel Start No recent travel history available. Last Filed Vital Signs Time Taken Vital Sign Reading 02/04/2018 10:08 AM CDT Blood Pressure 155/103 02/04/2018 10:08 AM CDT Pulse 82 - Temperature - - Respiratory Rate - - Oxygen Saturation - - Inhaled Oxygen - Concentration 02/04/2018 10:08 AM CDT Weight 75.3 kg (166 lb) 02/04/2018 10:08 AM CDT Height 152.4 cm (5') 02/04/2018 10:08 AM CDT Body Mass Index 32.42 Plan of Treatment Health Maintenance Due Date Last Done Comments CERVICAL CANCER SCREENING 1995 INFLUENZA VACCINE 05/27/2018 Results Not on fileafter 12/28/2017 Insurance Payer Benefit Subscriber ID Type Phone Address Plan / Group TEXAN[employer]US TEXANPLUS xxxxxxxxx HMO [facility] MEDICAID MEDICAID xxxxxxxxx Medicaid Advance Directives Patient has advance care planning documents on file. For more information, maura benitez contact: Tremaine Mcginnis [address] [place] [address]
[2018-12-29 14:30] VITALS: BP 136/93
--- NOTE | 2018-12-29 19:11 | Operative Report ---
DATE OF PROCEDURE: SURGEON: Brionna Roper MD PREOPERATIVE DIAGNOSIS: Genuine stress incontinence. POSTOPERATIVE DIAGNOSIS: Genuine stress incontinence. PROCEDURES: Transobturator tape and cystoscopy. COMPLICATIONS: None. ESTIMATED BLOOD LOSS: Minimal. PROCEDURE IN DETAIL: The patient was taken to the OR. General anesthesia was induced. She was prepped and draped in a sterile fashion, placed in dorsal lithotomy position with hyperflexion of the hip joint. Pan catheter was placed inside the bladder and UVJ was marked with an Allis clamp. Another Allis clamp was applied at the external urethral meatus. Lid speculum was placed inside the vagina and subvaginal tissue injected at the level of urethra using Marcaine with epinephrine 0.25%. Marker pen was used to clarisa the entry points at the level of the clitoris on both sides of the pelvis. Vagina was opened using the scalpel at the level of the midurethra and subvaginal tissue was dissected off the urethra using Metzenbaum scissors using . The same was repeated on the other side. Obtryx trocar was introduced through the entry points after making stab wounds at the entry points using the scalpel and the tip of the Obtryx trocar was felt with the index finger just below the pubic ramus and guided to the outside of the wound. The sling was threaded over the Obtryx trocar and the trocar was removed or withdrawn. Same was repeated on the other side and the sling was laid down flat at the level of the midurethra. Cystoscopy was performed and showed normal bladder and urethra. Bladder was emptied. Following this, plastic cover of the sling was removed and the vagina was closed with interlocking stitches of Vicryl 2-0 and excess sling was trimmed off at the entry points and skin was approximated using Dermabond. The patient tolerated the procedure well. Lap and needle count was correct x2 at the end of the procedure. Brionna Roper MD DD/GARYL /[id number]
== END | disposition home or self-care (01) ==
LOC: OR 08:01
PROVIDERS: ATTEND Obstetrics & Gynecology
DX: N39.3 Stress incontinence (female) (male) (principal); N39.0 Urinary tract infection, site not specified; I10 Essential (primary) hypertension; R00.1 Bradycardia, unspecified; E11.9 Type 2 diabetes mellitus without complications; K21.9 Gastro-esophageal reflux disease without esophagitis; Z88.0 Allergy status to penicillin; Z01.810 Encounter for preprocedural cardiovascular examination; Z01.812 Encounter for preprocedural laboratory examination; Z79.84 Long term (current) use of oral hypoglycemic drugs
CPT/HCPCS: 36415 ×2; 57288; 81025; 82948; 84702; 85025; 93005; C1781; J0461; J1100; J1885; J2001; J2250; J2405; J2704

== ENCOUNTER → 2024-07-19 | Day surgery (SDC) | payer MEDICARE ==
[~2024-07-19] MED LIST changes: +ASPIRIN EC81 MG PO; +ATORVASTATIN CA20 MG PO; -ATROPINE SULFATE 1 MG/ML VIAL ONE; -BUPIVACAINE 0.25%/EPI 30ML SDV INJ ONE; +BYSTOLIC5 MG PO; -CLINDAMYCIN PHOS 300MG/2ML VIAL ONE; -DEXAMETHASONE SOD PHOS INJ 4 MG/ML VIAL ONE; -ESTROGENS CONJUGATED VAGINAL CR 45 GM TUBE PV ONE; +FAMOTIDINE20 MG PO; +GLYCOPYRROLATE INJ 0.2 MG/ML VIAL ONE; +JANUMET 50-5001 EACH PO; -KETOROLAC TROMETHAMINE 30 MG/ML VIAL ONE; +LANTUS 3ML100 UNITS/ PO; +LOSARTAN POTAS100 MG PO; -METHYLENE BLUE 1% INJ 10 ML VIAL INJ ONE; +METOCLOPRAMIDE HCL 10 MG/2ML VIAL ONE; -MIDAZOLAM HCL 2 MG/2 ML VIAL ONE; -NEOSTIGMINE 5 MG/5ML SYR ONE; +NITROFURANTOIN100 MG PO; +OMEPRAZOLE40 MG PO; -ONDANSETRON HCL INJ 2MG/ML 2ML 2 MG/ML VIAL ONE; +ONDANSETRON ODT8 MG PO; -PROPOFOL IV EMULSION 10 MG/ML 20 ML VIAL ONE; +PROPOFOL IV EMULSION 10 MG/ML 50 ML VIAL IV ONE; -SEVOFLURANE INHAL SOLN 250 ML PEN BTL ONE; +STOOL SOFTENER50 MG PO
[2024-07-19] MEDS: LACTATED RINGER'S 1,000 ML ONE (08:22)
[2024-07-19 10:22] VITALS: TEMP 97.8
[2024-07-19 10:35] VITALS: BP 128/86; PULSE 69; RESP 16; O2SAT 98
== END | disposition home or self-care (01) ==
LOC: OR 07:56
PROVIDERS: ATTEND Internal Medicine Gastroenterology
DX: K20.90 Esophagitis, unspecified without bleeding (principal); K63.5 Polyp of colon; K31.7 Polyp of stomach and duodenum; K29.50 Unspecified chronic gastritis without bleeding; K21.9 Gastro-esophageal reflux disease without esophagitis; K59.00 Constipation, unspecified; K62.5 Hemorrhage of anus and rectum; K57.30 Diverticulosis of large intestine without perforation or abscess without bleeding; K64.8 Other hemorrhoids; I10 Essential (primary) hypertension; E78.5 Hyperlipidemia, unspecified; E03.9 Hypothyroidism, unspecified; E66.01 Morbid (severe) obesity due to excess calories; Z88.0 Allergy status to penicillin; Z01.810 Encounter for preprocedural cardiovascular examination; Z79.82 Long term (current) use of aspirin; Z79.84 Long term (current) use of oral hypoglycemic drugs; Z79.4 Long term (current) use of insulin; Z79.899 Other long term (current) drug therapy; Z86.11 Personal history of tuberculosis
CPT/HCPCS: 43239; 43251; 43450; 45385; 93005; J2001; J2470; J2704; J2765; J3010; J7121; 45378